=== PATIENT | female | born 1985 | race Caucasian/White ===

== ENCOUNTER → 2019-06-12 | Outpatient (CLI) | payer BC | LOC: COL.RAD 07:19 | DX: Z31.9 Encounter for procreative management, unspecified (principal); N97.9 Female infertility, unspecified | CPT/HCPCS: Q9967 ==

== ENCOUNTER 2022-03-28 15:49 | Emergency (ER) | payer BC ==
[~2022-03-28] VITALS: Ht 154.9 cm; Wt 84.1 kg
[2022-03-28 16:44] VITALS: TEMP 98.4
[2022-03-28 19:23] LABS: COLLECTION METHOD CLEAN CATCH
[2022-03-28 19:27] LABS: BASO % 0.3 % (0.0-2.0); EOS # 0.1 K/mm3 (0.0-0.7); EOS % 1.2 % (0.0-4.0); GRAN # 8.6 K/mm3 (1.4-6.5); GRAN % 71.4 % (42.2-75.2); HEMATOCRIT 38.1 % (37.0-47.0); HEMOGLOBIN 12.6 g/dl (12.5-16.0); LYMPH # 2.7 K/mm3 (1.2-3.4); LYMPH % 22.3 % (20.0-51.0); MEAN CELL VOLUME 84 fl (80.0-100.0); MEAN CORPUSCULAR HEMOGLOBIN 28 pg (27-31); MEAN CORPUSCULAR HGB CONC 33 g/dl (33.0-37.0); MEAN PLATELET VOLUME 9.2 fl (7.4-10.4); MONO # 0.5 K/mm3 (0.1-0.6); MONO % 4.5 % (1.7-9.3); PLATELET COUNT 347 K/mm3 (130-400); RED BLOOD COUNT 4.56 M/mm3 (4.10-5.30); REDCELL DISTRIBUTION WIDTH-CV 14.4 % (11.5-14.5)
[2022-03-28 19:29] LABS: URINE APPEARANCE Cloudy (CLEAR/HAZY); URINE COLOR Amber (YELLOW)
[2022-03-28 19:30] LABS: URINE BLOOD 3+ (NEGATIVE); URINE GLUCOSE Negative (NEGATIVE); URINE KETONE Negative (NEGATIVE); URINE NITRATE Negative (NEGATIVE); URINE PROTEIN(semi-quant) Negative (NEGATIVE); URINE UROBILINOGEN 0.2 E.U/dL (0.2-1.0)
[2022-03-28 19:38] LABS: MUCOUS Present (NOT PRESENT); URINE BACTERIA Rare /hpf (NONE SEEN); URINE RBC >50 /hpf (0-2)
[2022-03-28 19:48] LABS: ALBUMIN 3.4 gm/dL (3.5-5.0); BILIRUBIN,TOTAL 0.2 mg/dL (0.2-1.2); C-REACTIVE PROTEIN 2.21 mg/dL (0.00-0.50); CALCIUM 9.3 mg/dL (8.4-10.2); CREATININE, serum 0.77 mg/dL (0.57-1.11); POTASSIUM 3.9 mmol/L (3.5-4.5); TOTAL PROTEIN 7.2 gm/dL (6.2-8.1)
[2022-03-28 22:49] VITALS: BP 127/82; PULSE 83
== END 2022-03-28 23:02 | disposition home or self-care (01) ==
LOC: COL.ER 15:49
PROVIDERS: Nurse Practitioner
DX: O03.9 Complete or unspecified spontaneous abortion without complication (principal); Z28.311 Partially vaccinated for COVID-19
CPT/HCPCS: J2791; J3010; J7030